=== PATIENT | male | born 1950 | race Caucasian/White ===

== ENCOUNTER → 2016-07-14 | Day surgery (SDC) | payer MEDICARE ==
[~2016-07-14] MED LIST: BUPIVACAINE/EPINEPHRINE 0.5% PF 10 ML VIAL ONE; GLIM4; GLUCTAB OR; LACTATED RINGER'S 1000 ML INJ 1,000 ML ONE; LEXA20TA OR; LIDOCAINE 1%/EPINEPHrine 1:100,000 SOLN 20 ML VIAL ONE; LORTA5 PO; MIDAZOLAM HCL 2 MG/2 ML VIAL ONE; NEUR300C OR; NEXI40CA PO; NOVO7030P2 SQ; ONDANSETRON HCL 4 MG/2 ML VIAL IV PUSH ONE; PRAV20; PROP20 PO; PROPOFOL 200 MG/20 ML AMP IV ONE; STOO100C PO; TEMA15 PO; ZIPR40 PO; ceFAZolin INJ 1,000 MG VIAL ONE
--- NOTE | 2016-07-14 16:24 | TN ---
cc: VISHAL JADE MD DATE OF SURGERY 07/14/16 PREOPERATIVE DIAGNOSIS Malignant melanoma to the left shoulder POSTOPERATIVE DIAGNOSIS Malignant melanoma to the left shoulder PROCEDURE Wide excision of malignant melanoma to the left shoulder, a 4 x 7 cm elliptical incision double layer closure to obtain clear margins. ANESTHESIA TIVA. SURGEON Dr. Jacquelin Jade INDICATIONS This is a pleasant 66-year-old gentleman who had had a previous melanoma on his right shoulder. He then subsequently developed one on his left posterior shoulder area. Was biopsied as an outpatient at another institution. Plans were made for above. PROCEDURE IN DETAIL The patient was taken to the operating room and placed in supine position. After anesthesia, he was placed over in the right lateral decubitus position. The area had been previously marked. We make an elliptical incision to obtain a little bit more than 1.5 centimeter margin circumferentially. This is anesthetized with Marcaine solution and a 4 x 7 cm elliptical incision is made marked at 12 o'clock position with a suture. The flaps are created inferiorly and superiorly. Deep layer is reapproximated with a 2-0 Vicryl and skin with a 3-0 nylon. The patient tolerated the procedure well, had no immediate postop complications. Vishal Jade MD JDB/ /3:08 PM /4:19 PM
== END | disposition home or self-care (01) ==
LOC: ESDC 13:09
PROVIDERS: ATTEND Surgery
DX: C43.62 Malignant melanoma of left upper limb, including shoulder (principal); E11.9 Type 2 diabetes mellitus without complications; Z79.4 Long term (current) use of insulin
CPT/HCPCS: 00400; 11606; 12032; 82948; 88305; 88341; 88342; J0690; J2250; J2405; J3010; J7120